=== PATIENT | male | born 1945 | race Caucasian/White ===

== ENCOUNTER 2016-10-16 07:30 | Day surgery (SDC) | payer OTHER ==
[~2016-10-16] VITALS: Ht 188 cm; Wt 95.3 kg
[~2016-10-16 07:30] MED LIST: APRISO0.375 GM PO; ASPIR 8181 M1 PO; ATORVASTATIN CA40 MG PO; Augmentin PO; COATED ASPIRIN325 MG PO; COREG12.5 M1 PO; Coreg PO; Ecotrin PO; FLEXERIL10 MG PO; FOLIC ACID1 MG PO; FUROSEMIDE40 MG PO; Folvite PO; HYDROCHLOROTHIA25 MG PO; Hydrodiuril,Oretic,E PO; IMDUR30 MG PO; ISOSORBIDE MONO30 MG PO; Imdur PO; LASIX40 MG PO; LIPITOR40 MG PO; LOPERAMIDE2 MG PO; Lasix PO; Lipitor PO; MEDROL DOSEPAK4 MG PO; METOPROLOL SUCC25 MG PO; METRONIDAZOLE500 MG PO; MIRAPEX0.25 MG PO; NAPROSYN500 MG PO; NIFEDIPINE ER90 M1 PO; NITROLINGUAL S4.9 GM MM; NITROSTAT0.4 MG SL; NORCO 5/3251 TABLET PO; PANTOPRAZOLE SO40 MG PO; PERCOCET 5/31 TABLET PO; PLAVIX75 MG PO; PREVACID30 MG PO; PRINIVIL10 MG PO; PROTONIX40 MG PO; PYRIDOXINE,VIT100 MG PO; Plavix PO; Procardia XL,Adalat PO; Protonix PO; Pyridoxine,Vitamin B PO; RANEXA500 MG PO; Ranexa PO; SOTALOL120 MG PO; TOPROL XL50 MG PO; TRAMADOL HCL50 MG PO; TYLENOL EXTRA500 MG PO; Toprol XL PO; UCERIS9 MG PO; VITAMIN B 12 PO; VITAMIN B PO; VITAMIN B-12500 MC2 PO; VITAMIN B-125000 MC1 PO; VITAMIN B-6100 MG PO; VITAMIN B12-FO1 EACH PO; VYTORIN 10/81 TABLET PO; Vicodin,Norco 5/325 PO; ZESTRIL,PRINIVI40 MG PO; ZOCOR80 M1 PO; Zestril,Prinivil PO
== END 2016-10-16 09:55 | disposition home or self-care (01) ==
LOC: PAIN 07:30 → SDC 08:15 → PAIN 09:55
PROC: 3E0S33Z Introduction of Anti-inflammatory into Epidural Space, Percutaneous Approach (ICD-10-PCS; principal; 2016-10-16)
DX: M50.222 Other cervical disc displacement at C5-C6 level (principal); M54.12 Radiculopathy, cervical region; F41.1 Generalized anxiety disorder; L12.0 Bullous pemphigoid; I25.10 Atherosclerotic heart disease of native coronary artery without angina pectoris; I50.42 Chronic combined systolic (congestive) and diastolic (congestive) heart failure; I10 Essential (primary) hypertension; G25.81 Restless legs syndrome; M54.30 Sciatica, unspecified side; K50.90 Crohn's disease, unspecified, without complications; M51.26 Other intervertebral disc displacement, lumbar region
CPT/HCPCS: J1030; J3010; S0020

== ENCOUNTER 2017-01-20 13:01 | Day surgery (SDC) | payer OTHER ==
[~2017-01-20] VITALS: Ht 188 cm; Wt 95.2 kg
== END 2017-01-20 15:43 | disposition home or self-care (01) ==
LOC: PAIN 13:01
PROC: 3E0S33Z Introduction of Anti-inflammatory into Epidural Space, Percutaneous Approach (ICD-10-PCS; principal; 2017-01-20)
DX: M50.13 Cervical disc disorder with radiculopathy, cervicothoracic region (principal); F41.9 Anxiety disorder, unspecified; G89.29 Other chronic pain; M54.5 Low back pain; M48.06 Spinal stenosis, lumbar region; M48.02 Spinal stenosis, cervical region; Z87.891 Personal history of nicotine dependence; I25.10 Atherosclerotic heart disease of native coronary artery without angina pectoris; Z98.61 Coronary angioplasty status; Z95.0 Presence of cardiac pacemaker; Z79.82 Long term (current) use of aspirin
CPT/HCPCS: J1030; J2250; J3010

== ENCOUNTER 2017-10-28 12:59 | Day surgery (SDC) | payer OTHER ==
[~2017-10-28] VITALS: Ht 188 cm; Wt 97.5 kg
[~2017-10-28 12:59] MED LIST changes: +BUDESONIDE EC3 MG PO; -ISOSORBIDE MONO30 MG PO; +ISOSORBIDE MONO60 MG PO; +PRIMIDONE50 MG PO
[2017-10-28] MEDS ORDERED: K-DUR20 MEQ PO (13:12)
== END 2017-10-28 16:20 | disposition home or self-care (01) ==
LOC: CATH 12:59
DX: Z45.02 Encounter for adjustment and management of automatic implantable cardiac defibrillator (principal); I47.2 Ventricular tachycardia; I42.0 Dilated cardiomyopathy; I25.5 Ischemic cardiomyopathy; I11.0 Hypertensive heart disease with heart failure; I50.9 Heart failure, unspecified; K21.9 Gastro-esophageal reflux disease without esophagitis; E78.5 Hyperlipidemia, unspecified; I25.2 Old myocardial infarction; Z95.5 Presence of coronary angioplasty implant and graft
CPT/HCPCS: C1722; J0690; J1200; J2250; J3010; S0020

== ENCOUNTER → 2018-01-07 | Outpatient (CLI) | payer OTHER ==
[~2018-01-07] MED LIST changes: +K-DUR20 MEQ PO
== END | disposition home or self-care (01) ==
DX: R13.10 Dysphagia, unspecified (principal)
CPT/HCPCS: 92611 GN; G8996 GN; G8997 GN; G8998 GN